=== PATIENT | female | born 1990 ===

== ENCOUNTER 2017-04-16 20:14 | Inpatient (IN) | payer OTHER ==
[~2017-04-16] VITALS: Ht 165.1 cm; Wt 59.6 kg
[2017-04-16] MEDS ORDERED: CETI10TA84 PO (20:30)
[2017-04-16] MEDS ORDERED: BUPR-83 PO (20:30)
[2017-04-16] MEDS ORDERED: NURSING VERBAL MED ORDER ONE (20:30)
[2017-04-16] MEDS ORDERED: FLUO40CA8 PO (20:30)
[2017-04-16] MEDS ORDERED: BISMUTH SUBSALICYLATE PER ML OMNICELL CHARGE PO PRN (20:45)
[2017-04-16] MEDS ORDERED: hydrOXYzine HCL 25 MG TAB PO PRN (20:45)
[2017-04-16] MEDS ORDERED: MAGNESIUM HYDROXIDE SUSP 30 ML UDC PO PRN (20:45)
[2017-04-16] MEDS ORDERED: ALUMINUM/MAGNESIUM SUSP 30 ML UDC PO PRN (20:45)
[2017-04-16] MEDS ORDERED: SODIUM CHLORIDE 0.65% NA SOLN 45 ML (OCEAN) PRN (20:45)
[2017-04-16] MEDS: ACETAMINOPHEN 325 MG TAB PO PRN (22:36)
[2017-04-16 23:21] VITALS: BP 98/62; PULSE 83; TEMP 36.8; Ht 165.1 cm; Wt 59.6 kg
[2017-04-17 07:05] VITALS: BP_SYST 90; BP_SYST 91; BP_DIAS 56; BP_DIAS 60; PULSE 61; PULSE 81; TEMP 36.5
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
[2017-04-17] MEDS ORDERED: LEVOIUD ×2 (08:44→09:39)
[2017-04-17] MEDS ORDERED: ONDA4TAB46 PO (09:40)
[2017-04-17] MEDS ORDERED: BUPRTAB51 PO (09:41)
[2017-04-17] MEDS ORDERED: FERR1TAB13 PO (09:44)
--- NOTE | 2017-04-17 11:25 | Medical Student: BHU Only ---
Psychiatric Evaluation Date of Service: Apr 17, 2017. HPI: Muna Gaspar is a 26 yo female admitted last night from [facility] following suicidal ideations with plan to end her life. She decided to go to the ED instead of overdosing on pills because she thought of her two boys, age 2 1/2 years and 10 months. She has not taken her Prozac or Wellbutrin for 3-4 weeks and is going through a stressful custody arrangement right now with her Javi and his mother. She is currently depressed and feels "out of it" with a 3/10 mood and has many more bad days than good days. She self-diagnoses herself with depression, anxiety, ADHD, OCD, and multiple personality disorder, of which there are six including herself. There is a gun in her house, and there are "three people plus me who take a lot of meds, and they are al in the same kitchen cabinet". Past Psychiatric History: Diagnosed with bipolar disorder by her PCP at age 19. She has tried many different medications, but never tried lithium. She has a history of 3 previous suicide attempts at age 19 and 22 where she planned to OD on pills, and at age 24 where she walked to a bridge but did not jump off. She has seen psychiatrist Meliza Gaviria at [facility] for several years and has had the same PCP, Evaristo Page at [facility] for many years. Has had [address] [facility] in 2009 following overdose and had 3 stays at [facility] most recently in 2011. Family History: Dad is a self-proclaimed "psychopath" with schizophrenia, depression, anxiety, and bipolar disorder. He "disappeared" when Muna was little and she has not heard from him since. Social History: She was raised by her great-grandparents, because her mom went to shelter in [place] when she as very young, and her dad disappeared around the same time. She has a good relationship with her great-grandma (Trip) still, and her great grandpa in 2010. She has a brother named Francesco who is 26. She has two sons, Cathryn, 2.5 years old, and Jett, 10 months old, who are in joint 1/3 custody between Muna, her (referred to as ex-) Javi, and Javi's mother Rosey. Javi is the father of both boys. Currently Rosey has 2/3 custody of children while Muna is here getting help. She is engaged to new boyfriend of 4 months Manoj, although she is still to Javi. Has had to pay fines for a bomb threat for which she was framed 3 months before graduating high school, and for shoplifting. She notes traumatic experiences from through present, and has never talked to a therapist about them. Smokes 1 pack per day, has not drank alcohol x4 months. No recreational drug use. Highest level of education is GED. ROS: Positive for depression 11/09, feeling "eh". Some mood lability, suicidal ideation, previous homocidal ideation towards ex boy friend years ago and thoughts without a plan towards Javi. Tiredness, anhedonia, feeling "out of it". Sleeps well, generally 02:00-10:00. Often hears the same 2-3 unidentifiable voices but they do not tell her to do things. She sees shadows. Otherwise negative. Objective: General: tired-appearing young woman. Sclarea are tattooed sapphire blue. Somewhat unkempt appearing. Psych: Depressed mood, PHQ-9 score of 10. Some lability with episodes lasting hours to days where she does not feel as down. Not true manic episodes, but positive for rapid speech. Anxious constantly, with VIRGINIE-7 score of 15. mostly restless and irritable. Not happy with physical appearance. Thoughts are organized and coherent, although becomes quiet and withdrawn when discussing other personalities or traumatic events of life. Not tangential. Seems goal oriented but unsure how to pickup her life. Speech is not pressured. Good eye contact. Assessment and Plan: 1. Suicidal ideation: Active, not willing to act on plan to overdose due to sons. This is fourth suicidal intention. Will need to secure medications in house if she returns to same house. Report of gun in house too, needs to be removed or locked. 2. ?Bipolar disorder: Diagnosed at 19 by PCP, unclear as to whether there has been a true manic episode. Never on lithium and unsure of all the previous medications she has tried. Currently being treated for unipolar depression, not bipolar depression. Outpatient psych records give diagnosis of bipolar but appears to be carried over, as there is no record of manic episodes. 3. Major depressive disorder: Persistent x age 19. Currently on Wellbutrin and Prozac. Appears to be history of stopping medications and relapsing. 4. History of Antisocial Personality Disorder: Diagnosed per outpatient psychiatrist. History of bomb threats, shoplifting. 5. Disposition: Unwilling to see Dr. Silva today. Length of stay likely 3-5 days. Needs to learn coping skills for stress, anxiety, and social stressors. Should consider room switch so she does not case picker roommate's tendencies.
[2017-04-17] MEDS ORDERED: WLLSR150 PO (11:49)
[2017-04-17] MEDS: ACETAMINOPHEN 325 MG TAB PO PRN (14:53)
[2017-04-17] MEDS ORDERED: NURSING VERBAL MED ORDER ONE (19:45)
[2017-04-17] MEDS: CETIRIZINE HCL 10 MG TAB PO SCH (20:07)
[2017-04-17] MEDS: NICOTINE POLACRILEX 2 MG GUM MT PRN (20:08)
[2017-04-17] MEDS: hydrOXYzine HCL 25 MG TAB PO PRN (20:26)
[2017-04-17] MEDS: NICOTINE 21 MG/24 HR TDSY TD SCH (21:20)
[2017-04-18 06:58] VITALS: BP_SYST 96; BP_SYST 99; BP_DIAS 61; BP_DIAS 65; PULSE 61; PULSE 82; TEMP 36.4
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
[2017-04-18] MEDS: CETIRIZINE HCL 10 MG TAB PO SCH (09:50)
[2017-04-18] MEDS: NICOTINE 21 MG/24 HR TDSY TD SCH (09:51)
[2017-04-18] MEDS: hydrOXYzine HCL 25 MG TAB PO PRN (10:21)
[2017-04-18] MEDS ORDERED: VENLAFAXINE HCL XR 75 MG CAPXR PO ONE (11:45)
--- NOTE | 2017-04-18 11:45 | Psychiatric Progress Notes ---
Progress Note Date of Service Apr 18, 2017. Interval History 26 year old WF with depression and antisocial PD who presents with depression and SI, admitted voluntarily from OSH, but poorly compliant with admission interview and refusing to answer questions or even get out of bed. She has been noncompliant with OP treatment and off her meds for about a month. Will need meeting with boyfriend to determine recent stressors and explore ways to improve her compliance. Chief Complaint "Alright.". Subjective Patient was seen & assessed interval progress reviewed with Treatment Team. The patients says that her mood is "alright", making the distinction that alright is better than OK. She says that she slept a lot yesterday, but is more alert today. She slept poorly last night, saying that she was up and down all night. She has a meeting with her fiance and the people she is living with this afternoon. She would like to not return to live in their home saying that they treat her like a child and try to control what she does. She doesn't have anywhere else she can go, but says that being homeless is better than living with them. We discuss previous med trial (see below). She denies ever having had a manic or hypomanic episode in the past, but does endorse irritability and depression. She is willing for a trial of a new med as the Prozac and Wellbutrin she was last on since the of her 10 mos old son, was not working. She denies SI/HI, denies aud/vis hallucinations. Review of Systems Constitutional: No fever, No chills, No sweats, No weight loss, No weakness, No fatigue, No problem reported ENT: No hearing loss, No unusual epistaxis, No nasal symptoms, No sore throat, No tinnitus, No dental problems, No trouble swallowing, No problem reported Respiratory: + problem reported (nasal congestion) Cardiovascular: No chest pain, No orthopnea, No PND, No edema, No claudication , No palpitations, No problem reported Abdomen: No pain, No nausea, No vomiting, No diarrhea, No constipation, No GI bleeding, No problem reported Musculoskeletal: No joint pain, No muscle pain, No swelling, No calf pain, No problem reported Neurologic: No memory loss, No paralysis, No weakness, No numbness/tingling, No vertigo, No balance problems, No problem reported Psychiatric: + depression symptoms Integumentary: + problem reported (multiple tattoos and the sclera of her eyes are tattoo'd blue) Sleep Information Total Hours of Sleep: 6.75 Meal Information Percent of Breakfast Consumed: 80 Percent of Lunch Consumed: 100 Percent of Dinner Consumed: 90 Mental Status Exam During interview pt is: alert and oriented, cooperative Appearance: appropriately groomed, other (Hair cut close on one side, long on the other, multiple tattoos and sclera tattood blue) Eye contact is: good Motor behavior is: steady gait & station, no abnormal motor movements Speech: normal in rate, rhythm & volume Affect: constricted Mood is: depressed Thought process: goal directed Thought content: reality based without delusions Suicidal thought are: denied Homicidal thoughts are: denied Hallucinations: denies auditory, denies visual Cognition: memory grossly intact, attention grossly intact, language grossly intact Intelligence estimated to be: average Insight: impaired, severely impaired Judgement: impaired, severely impaired Medication Trials (1) past med trials 1. Prozac- didnt' work 2. Wellbutrin- didn't work 3. Geodon- Zombie 4. Abilify- ? 5. Celexa- ? 6. Risperdal- weight gain Last Edited By: Amber Washington on Apr 18, 2017 11:41 Impression More cooperative today, and denying SI. Reviewed past med trials, and she is willing to try Effexor XR 37.5 mg today increasing to 75 mg tomorrow. R/B/A reviewed and accepted including black box warning. Will have a family meeting this afternoon where she wants to tell them she will live elsewhere, but has no place to live. OP records reveal a long history of treatment noncompliance and a diagnosis of antisocial personality disorder. We will continue to gather information toward the need for further inpatient treatment. Plan (1) Depression Records from OP psychiatrist reviewed to clarify diagnosis and past medication trials. Patient refusing interview, will need to discuss medication options with her and level of commitment to taking them and participating in her own treatment. Recommend OP therapy. Q 15 min checks for safety. Participate in groups and therapy on the unit Family meeting with 04/18 - Start Effexor XR 37.5 mg today increasing to 75 mg. tomorrow - Family meeting this afternoon (2) Nicotine dependence Offer nicotine patch and gum if needed (3) Antisocial personality disorder Coordinate with OP providers, and present clear and consistent boundaries. Visit Code E&M Code: 10196 Inventory Assets Strengths: Support of fiance Needs: Treatment compliance Risk Factors Assessment : Yes /single/: Yes Health problems: No Mental Health Diagnoses: Yes Previous attempt: Yes Previous psychiatric stay: Yes Hopelessness: Yes Protective Factors Assessment : No Responsible for young children: Yes Employed: No Stable relationships: No Data Vital Signs Last 24 Hrs: Date Time Temp Pulse Resp B/P (MAP) Pulse Ox O2 Delivery O2 Flow Rate FiO2 04/18/17 06:58 36.4 61 16 96/61 82 99/65 Meds Administered Last 24 Hrs: Meds Administered (Past 24Hrs) Medications (Trade) Dose Ordered Sig/Felix Route Start Time Stop Time Status Last Admin Dose Admin Acetaminophen (Tylenol Tab) 650 mg Q4H PRN PO 04/16/17 20:45 05/16/17 20:44 04/17/17 14:53 650 MG Hydroxyzine HCl (Vistaril Tab) 25 mg Q4H PRN PO 04/16/17 20:45 05/16/17 20:44 04/18/17 10:21 25 MG Cetirizine HCl (zyrTEC TAB) 10 mg DAILY PO 04/18/17 09:00 05/18/17 08:59 04/18/17 09:50 10 MG Nicotine (Nicoderm Cq 21MG Patch) 1 patch QAM TD 04/18/17 09:00 05/18/17 08:59 04/17/17 21:20 1 PATCH Nicotine Polacrilex (Nicorette 2MG Gum) 1 piece Q2H PRN MT 04/17/17 20:00 05/17/17 19:59 04/17/17 20:08 1 PIECE Problem Qualifiers (1) Depression: Depression Type: unspecified Qualified Codes: F32.9 - Major depressive disorder, single episode, unspecified (2) Nicotine dependence: Nicotine product type: cigarettes
[2017-04-18] MEDS ORDERED: VENLAFAXINE HCL XR 37.5 MG CAPXR PO ONE (12:30)
[2017-04-18] MEDS: ACETAMINOPHEN 325 MG TAB PO PRN (19:54)
[2017-04-19 06:51] VITALS: BP_SYST 82; BP_SYST 97; BP_DIAS 51; BP_DIAS 59; PULSE 69; PULSE 73; TEMP 36.5
[2017-04-19] MEDS: CETIRIZINE HCL 10 MG TAB PO SCH (09:19)
[2017-04-19] MEDS: VENLAFAXINE HCL XR 75 MG CAPXR PO SCH (09:19)
--- NOTE | 2017-04-19 11:16 | Psychiatric Progress Notes ---
Progress Note Date of Service Apr 19, 2017. Interval History 26 year old WF with depression and antisocial PD who presents with depression and SI, admitted voluntarily from OSH, but poorly compliant with admission interview and refusing to answer questions or even get out of bed. She has been noncompliant with OP treatment and off her meds for about a month. Will need meeting with boyfriend to determine recent stressors and explore ways to improve her compliance. Chief Complaint "Pretty good". Subjective Patient was seen & assessed interval progress reviewed with Treatment Team. Muna had a meeting with her fiade and the people she lives with. The meeting with her fiance "was pretty good", but with the people she lives with, it did not. She claims today not to remember much of the meeting other than to say " we argued". She does not plan to move back with them, but plans to go to maggi 's parents for a few days while they clear out a room at her grandmother's, although grandmother has not yet agreed to this. Muna says that she is thinking about it, and Muna will call her later today for her decision. Muna is asking why she can't wear a tank top on the unit, trying to challenge the rules. Staff report that she has been attending most groups. She is denying SI , denying side effects to meds, denying aud/vis hallucinations. Review of Systems Constitutional: No fever, No chills, No sweats, No weight loss, No weakness, No fatigue, No problem reported ENT: No hearing loss, No unusual epistaxis, No nasal symptoms, No sore throat, No tinnitus, No dental problems, No trouble swallowing, No problem reported Respiratory: No cough, No sputum, No wheezing, No shortness of breath, No dyspnea on exertion, No dyspnea at rest, No hemoptysis, No problem reported Cardiovascular: No chest pain, No orthopnea, No PND, No edema, No claudication , No palpitations, No problem reported Abdomen: No pain, No nausea, No vomiting, No diarrhea, No constipation, No GI bleeding, No problem reported Musculoskeletal: No joint pain, No muscle pain, No swelling, No calf pain, No problem reported Neurologic: No memory loss, No paralysis, No weakness, No numbness/tingling, No vertigo, No balance problems, No problem reported Psychiatric: + depression symptoms (improving) Integumentary: + problem reported (tattoos and tattoo'd sclera) Sleep Information Total Hours of Sleep: 6.00 Meal Information Percent of Breakfast Consumed: 100 Percent of Lunch Consumed: 95 Percent of Dinner Consumed: 0 Mental Status Exam During interview pt is: alert and oriented, cooperative Appearance: appropriately groomed, other (Hair cut close on one side, long on the other, multiple tattoos and sclera tattood blue) Eye contact is: good Motor behavior is: steady gait & station, no abnormal motor movements Speech: normal in rate, rhythm & volume Affect: constricted Mood is: depressed Thought process: goal directed Thought content: reality based without delusions Suicidal thought are: denied Homicidal thoughts are: denied Hallucinations: denies auditory, denies visual Cognition: memory grossly intact, attention grossly intact, language grossly intact Intelligence estimated to be: average Insight: impaired, severely impaired Judgement: impaired, severely impaired Medication Trials (1) past med trials 1. Prozac- didnt' work 2. Wellbutrin- didn't work 3. Geodon- Zombie 4. Abilify- ? 5. Celexa- ? 6. Risperdal- weight gain Last Edited By: Amber Washington on Apr 18, 2017 11:41 Impression More cooperative today, and denying SI. Tolerating start of EffexorXR. Will continue 75 mg today. Had meetings yesterday, and does not plan to return to live with Lam, but has not yet secured other housing. Is awaiting grandmother's decision to live with her. Is not suicidal again today and if progress continues will be able to discharge in the next few days. Has aftercare through [facility] as well as case management. Plan (1) Depression Records from OP psychiatrist reviewed to clarify diagnosis and past medication trials. Patient refusing interview, will need to discuss medication options with her and level of commitment to taking them and participating in her own treatment. Recommend OP therapy. Q 15 min checks for safety. Participate in groups and therapy on the unit Family meeting with BF 04/18 - Start Effexor XR 37.5 mg today increasing to 75 mg. tomorrow - Family meeting this afternoon 04/19 - Continue Effexor XR 75 mg. daily (2) Nicotine dependence Offer nicotine patch and gum if needed (3) Antisocial personality disorder Coordinate with OP providers, and present clear and consistent boundaries. Discharge / Aftercare Planning Primary Care Physician: Name: Dr Page [facility] Appointment Notes: Call as Needed Psychiatrist: Name: All Date of Appointment: Apr 30, 2017 Time of Appointment: 3:00 pm Aircraft Avionics Technician: Name: Rianna Live [facility] - [place] ext [phone] Visit Code E&M Code: 34568 Inventory Assets Strengths: Support of fiance Needs: Treatment compliance Risk Factors Assessment : Yes /single/: Yes Health problems: No Mental Health Diagnoses: Yes Previous attempt: Yes Previous psychiatric stay: Yes Hopelessness: Yes Protective Factors Assessment : No Responsible for young children: Yes Employed: No Stable relationships: No Data Vital Signs Last 24 Hrs: Date Time Temp Pulse Resp B/P (MAP) Pulse Ox O2 Delivery O2 Flow Rate FiO2 04/19/17 06:51 36.5 69 17 97/59 73 82/51 Meds Administered Last 24 Hrs: Meds Administered (Past 24Hrs) Medications (Trade) Dose Ordered Sig/Felix Route Start Time Stop Time Status Last Admin Dose Admin Cetirizine HCl (zyrTEC TAB) 10 mg DAILY PO 04/18/17 09:00 05/18/17 08:59 04/19/17 09:19 10 MG Nicotine (Nicoderm Cq 21MG Patch) 1 patch QAM TD 04/18/17 09:00 05/18/17 08:59 04/17/17 21:20 1 PATCH Nicotine Polacrilex (Nicorette 2MG Gum) 1 piece Q2H PRN MT 04/17/17 20:00 05/17/17 19:59 04/17/17 20:08 1 PIECE Venlafaxine HCl (effeXOR EXTENDED REL CAP) 75 mg QAM PO 04/19/17 09:00 05/19/17 08:59 04/19/17 09:19 75 MG Venlafaxine HCl (effeXOR EXTENDED REL CAP) 37.5 mg 1230 ONCE PO 04/18/17 12:30 04/18/17 12:31 DC 04/18/17 12:23 37.5 MG Problem Qualifiers (1) Depression: Depression Type: unspecified Qualified Codes: F32.9 - Major depressive disorder, single episode, unspecified (2) Nicotine dependence: Nicotine product type: cigarettes
[2017-04-19] MEDS: ACETAMINOPHEN 325 MG TAB PO PRN ×2 (13:00→18:16)
[2017-04-19] MEDS: NICOTINE 21 MG/24 HR TDSY TD SCH (15:57)
[2017-04-19] MEDS: NICOTINE POLACRILEX 2 MG GUM MT PRN ×2 (16:00→22:01)
[2017-04-20 07:03] VITALS: BP_SYST 93; BP_SYST 99; BP_DIAS 58; BP_DIAS 61; PULSE 73; PULSE 84; TEMP 36.7
--- NOTE | 2017-04-20 07:55 | Psychiatric Progress Notes ---
Progress Note Date of Service Apr 20, 2017. Interval History 26 year old WF with depression and antisocial PD who presents with depression and SI, admitted voluntarily from OSH, but poorly compliant with admission interview and refusing to answer questions or even get out of bed. She has been noncompliant with OP treatment and off her meds for about a month. Will need meeting with boyfriend to determine recent stressors and explore ways to improve her compliance. Chief Complaint "Just needed to get on the right medication". Subjective Patient was seen & assessed interval progress reviewed with Nursing. Staff report she has had some manipulative behavior, arguing about her clothes and wanting to wear clothing that is against unit policy. She is going to be living with her great grandmother. She is going to groups and spends time laughing and joking with two male peers. She was putting together a puzzle with a male peer today, and was initially reluctant to leave to participate in her interview. She says mood is improved, she feels less hopeless, has not been as tearful here , and thinks medications are helping. She admits she was poorly compliant with meds and outpatient appointments, and has talked to staff about setting alarms or keeping a chart for med compliance at home. She says the people she has been living with want her to go to a day program after discharge. She says she is no longer planning to live with her great grandmother, as she "talked it out" with the people she's been living with, and will stay there for a while and try to get a place with her fiance. She denies SI. Sleep is disrupted by her roommate talking in her sleep. She denies side effects to medication. She says she isn't sure if she'll be ready to leave Saturday, stating she is worried about going back to the same living situation, because "they tell me what to do and when to do it, treat me like a little kid." She says she is not sure she could even live with her great grandmother, and notes they don't get along well, and she never called her back to see she would even allow the patient to live with her. Sleep Information Total Hours of Sleep: 5.00 Meal Information Percent of Breakfast Consumed: 100 Percent of Lunch Consumed: 100 Percent of Dinner Consumed: 100 Mental Status Exam During interview pt is: alert and oriented, cooperative Appearance: appropriately groomed, other (Hair cut close on one side, long on the other, multiple earrings, tattoos and sclera tattood blue) Eye contact is: good Motor behavior is: steady gait & station, no abnormal motor movements Speech: normal in rate, rhythm & volume Affect: blunted Mood is: other ("better") Thought process: goal directed Thought content: reality based without delusions Suicidal thought are: denied Homicidal thoughts are: denied Hallucinations: denies auditory, denies visual Cognition: memory grossly intact, attention grossly intact, language grossly intact Intelligence estimated to be: average Insight: impaired Judgement: impaired Medication Trials (1) past med trials 1. Prozac- didnt' work 2. Wellbutrin- didn't work 3. Geodon- Zombie 4. Abilify- ? 5. Celexa- ? 6. Risperdal- weight gain Last Edited By: Amber Washington on Apr 18, 2017 11:41 Impression More cooperative, tolerating Effexor, and denying SI. Has gone back and forth about her housing options, was going to live with great grandmother, now stating will return to previous living situation, but doesn't feel comfortable with it. Has aftercare through [facility] as well as case management. Plan (1) Depression Records from OP psychiatrist reviewed to clarify diagnosis and past medication trials. Patient refusing interview, will need to discuss medication options with her and level of commitment to taking them and participating in her own treatment. Recommend OP therapy. Q 15 min checks for safety. Participate in groups and therapy on the unit Family meeting with BF 04/18 - Start Effexor XR 37.5 mg today increasing to 75 mg. tomorrow - Family meeting this afternoon 04/19 - Continue Effexor XR 75 mg. daily 04/20 - Now stating will return to current living situation, rather than going to live with great grandmother. Feels anxious about this. (2) Nicotine dependence Offer nicotine patch and gum if needed (3) Antisocial personality disorder Coordinate with OP providers, and present clear and consistent boundaries. Discharge / Aftercare Planning Primary Care Physician: Name: Dr Page [facility] Appointment Notes: Call as Needed Psychiatrist: Name: All Date of Appointment: Apr 30, 2017 Time of Appointment: 3:00 pm Dependency Counselor: Name: Rianna ARIAS - [place] ext [phone] Visit Code E&M Code: 41977 Inventory Assets Strengths: Support of fiance Needs: Treatment compliance Risk Factors Assessment : Yes /single/: Yes Health problems: No Mental Health Diagnoses: Yes Previous attempt: Yes Previous psychiatric stay: Yes Hopelessness: Yes Smoker: Yes Protective Factors Assessment : No Responsible for young children: Yes Employed: No Stable relationships: No Supportive family: Yes Data Vital Signs Last 24 Hrs: Date Time Temp Pulse Resp B/P (MAP) Pulse Ox O2 Delivery O2 Flow Rate FiO2 04/20/17 07:03 36.7 73 16 99/61 84 93/58 Meds Administered Last 24 Hrs: Meds Administered (Past 24Hrs) Medications (Trade) Dose Ordered Sig/Felix Route Start Time Stop Time Status Last Admin Dose Admin Cetirizine HCl (zyrTEC TAB) 10 mg DAILY PO 04/18/17 09:00 05/18/17 08:59 04/19/17 09:19 10 MG Nicotine (Nicoderm Cq 21MG Patch) 1 patch QAM TD 04/18/17 09:00 05/18/17 08:59 04/19/17 15:57 1 PATCH Venlafaxine HCl (effeXOR EXTENDED REL CAP) 75 mg QAM PO 04/19/17 09:00 05/19/17 08:59 04/19/17 09:19 75 MG Venlafaxine HCl (effeXOR EXTENDED REL CAP) 37.5 mg 1230 ONCE PO 04/18/17 12:30 04/18/17 12:31 DC 04/18/17 12:23 37.5 MG Problem Qualifiers (1) Depression: Depression Type: unspecified Qualified Codes: F32.9 - Major depressive disorder, single episode, unspecified (2) Nicotine dependence: Nicotine product type: cigarettes
[2017-04-20] MEDS: VENLAFAXINE HCL XR 75 MG CAPXR PO SCH (10:16)
[2017-04-20] MEDS: CETIRIZINE HCL 10 MG TAB PO SCH (10:16)
[2017-04-20] MEDS: NICOTINE 21 MG/24 HR TDSY TD SCH (10:17)
[2017-04-20] MEDS: hydrOXYzine HCL 25 MG TAB PO PRN (17:46)
[2017-04-21 07:04] VITALS: BP_SYST 96; BP_SYST 98; BP_DIAS 61; BP_DIAS 62; PULSE 77; PULSE 79; TEMP 36.5
--- NOTE | 2017-04-21 08:16 | Psychiatric Progress Notes ---
Progress Note Date of Service Apr 21, 2017. Interval History 26 year old WF with depression and antisocial PD who presents with depression and SI, admitted voluntarily from OSH, but poorly compliant with admission interview and refusing to answer questions or even get out of bed. She has been noncompliant with OP treatment and off her meds for about a month. Will need meeting with boyfriend to determine recent stressors and explore ways to improve her compliance. Chief Complaint "Better". Subjective Patient was seen & assessed interval progress reviewed with Nursing. The patient states that her mood is improved, and rates it an 8 or 9 out of 10. Her sleep was disrupted by her roommate, who she says was "making weird noises. " She is dismissive of the suggestion she uses earplugs tonight, stating she' ll only be here for 1 more night and can catch up on sleep at home. She feels she will be ready to go home tomorrow, and states she talked to her fianc, who told her he had spoken with the people she is staying with, and says "it will be better this time." She denies suicidal thoughts. Sleep Information Total Hours of Sleep: 5.50 Meal Information Percent of Breakfast Consumed: 100 Percent of Lunch Consumed: 100 Percent of Dinner Consumed: 100 Mental Status Exam During interview pt is: alert and oriented, cooperative Appearance: appropriately dressed (wearing pajamas), other (Hair cut close on one side, long on the other, multiple earrings, tattoos and sclera tattood blue) Eye contact is: good Motor behavior is: steady gait & station, no abnormal motor movements Speech: normal in rate, rhythm & volume Affect: euthymic Mood is: other ("better") Thought process: goal directed Thought content: reality based without delusions Suicidal thought are: denied Homicidal thoughts are: denied Hallucinations: denies auditory, denies visual Cognition: memory grossly intact, attention grossly intact, language grossly intact Intelligence estimated to be: average Insight: impaired Judgement: impaired Medication Trials (1) past med trials 1. Prozac- didnt' work 2. Wellbutrin- didn't work 3. Geodon- Zombie 4. Abilify- ? 5. Celexa- ? 6. Risperdal- weight gain Last Edited By: Amber Washington on Apr 18, 2017 11:41 Impression More cooperative, tolerating Effexor, and denying SI. Has gone back and forth about her housing options, was going to live with great grandmother, now stating will return to previous living situation, but doesn't feel comfortable with it. Has aftercare through [facility] as well as case management. Plan (1) Depression Records from OP psychiatrist reviewed to clarify diagnosis and past medication trials. Patient refusing interview, will need to discuss medication options with her and level of commitment to taking them and participating in her own treatment. Recommend OP therapy. Q 15 min checks for safety. Participate in groups and therapy on the unit Family meeting with BF 04/18 - Start Effexor XR 37.5 mg today increasing to 75 mg. tomorrow - Family meeting this afternoon 04/19 - Continue Effexor XR 75 mg. daily 04/20 - Now stating will return to current living situation, rather than going to live with great grandmother. Feels anxious about this. 04/21 - Mood continues to improve, and is hopeful for discharge tomorrow. (2) Nicotine dependence Offer nicotine patch and gum if needed (3) Antisocial personality disorder Coordinate with OP providers, and present clear and consistent boundaries. Discharge / Aftercare Planning Primary Care Physician: Name: Dr Page [facility] Appointment Notes: Call as Needed Psychiatrist: Name: All Date of Appointment: Apr 30, 2017 Time of Appointment: 3:00 pm Joiner Helper: Name: Rianna Live [facility] [place] ext [phone] Visit Code E&M Code: 96868 Inventory Assets Strengths: Support of fiance Needs: Treatment compliance Risk Factors Assessment : Yes /single/: Yes Health problems: No Mental Health Diagnoses: Yes Previous attempt: Yes Previous psychiatric stay: Yes Hopelessness: Yes Smoker: Yes Protective Factors Assessment : No Responsible for young children: Yes Employed: No Stable relationships: No Supportive family: Yes Data Vital Signs Last 24 Hrs: Date Time Temp Pulse Resp B/P (MAP) Pulse Ox O2 Delivery O2 Flow Rate FiO2 04/21/17 07:04 36.5 79 16 98/62 77 96/61 Meds Administered Last 24 Hrs: Meds Administered (Past 24Hrs) Medications (Trade) Dose Ordered Sig/Felix Route Start Time Stop Time Status Last Admin Dose Admin Venlafaxine HCl (effeXOR EXTENDED REL CAP) 75 mg QAM PO 04/19/17 09:00 05/19/17 08:59 04/20/17 10:16 75 MG Problem Qualifiers (1) Depression: Depression Type: unspecified Qualified Codes: F32.9 - Major depressive disorder, single episode, unspecified (2) Nicotine dependence: Nicotine product type: cigarettes
[2017-04-21] MEDS: VENLAFAXINE HCL XR 75 MG CAPXR PO SCH (09:04)
[2017-04-21] MEDS: CETIRIZINE HCL 10 MG TAB PO SCH (09:04)
[2017-04-21] MEDS: NICOTINE 21 MG/24 HR TDSY TD SCH (09:05)
[2017-04-22 07:03] VITALS: BP_SYST 100; BP_SYST 98; BP_DIAS 65; BP_DIAS 66; PULSE 69; PULSE 87; TEMP 36.6
[2017-04-22] MEDS: NICOTINE 21 MG/24 HR TDSY TD SCH (09:21)
[2017-04-22] MEDS: VENLAFAXINE HCL XR 75 MG CAPXR PO SCH (09:21)
[2017-04-22] MEDS: CETIRIZINE HCL 10 MG TAB PO SCH (09:21)
[2017-04-22] MEDS ORDERED: EFFSR150 PO (10:57)
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
[2017-04-22] MEDS: NICOTINE POLACRILEX 2 MG GUM MT PRN (15:38)
== END 2017-04-22 17:30 | disposition home or self-care (01) | DRG 881 ==
LOC: C.MHU 21:45
PROVIDERS: ADMIT Student in an Organized Health Care Education/Training Program; ATTEND Psychiatry & Neurology Psychiatry
DX: F32.9 Major depressive disorder, single episode, unspecified (principal); R45.851 Suicidal ideations; F60.2 Antisocial personality disorder; F17.210 Nicotine dependence, cigarettes, uncomplicated; Z79.899 Other long term (current) drug therapy; Z97.5 Presence of (intrauterine) contraceptive device; Z81.8 Family history of other mental and behavioral disorders